=== PATIENT | male | born 1945 | race Caucasian/White ===

== ENCOUNTER → 2017-02-03 | Outpatient (CLI) | payer MEDICARE, BC ==
[~2017-02-03] MED LIST: ASPIRIN 81MG TA81 MG PO; HUMALOG MIX 75/10 ML SC; LOSARTAN POTAS100 MG PO; METFORMIN1000 MG PO; NORTRIPTYLINE25 MG PO; SIMVASTATIN40 MG PO
[2017-02-03 07:50] LABS: HEMOGLOBIN 14.3 g/dL (14.1-18.0); LYMPH # 1.8 K/mm3 (0.7-4.5); LYMPH % 24.3 % (10-50)
[2017-02-03 09:37] LABS: BUN 26 mg/dL (7-18)
[2017-02-03 09:39] LABS: GFR (ESTIMATED) 46 ML/MIN (>60)
[2017-02-04 10:39] LABS: Creatinine, Urine 155.7 mg/dL (Not Estab.); Microalbumin, Urine 200.2 ug/mL (Not Estab.)
== END ==
LOC: LAB 07:21
PROVIDERS: Internal Medicine Endocrinology, Diabetes & Metabolism
DX: E11.29 Type 2 diabetes mellitus with other diabetic kidney complication (principal); E78.00 Pure hypercholesterolemia, unspecified; I10 Essential (primary) hypertension; Z79.4 Long term (current) use of insulin